=== PATIENT | male | born 1970 | race Caucasian/White ===

== ENCOUNTER → 2017-01-04 21:44 | Emergency (ER) | payer SELFPAY ==
[~2017-01-04 21:44] MED LIST: Acetaminophen TAB* 325 MG PO PRN; Al Hydrox/Mg Hydrox/Simet LIQ* 30 ML UDC PO PRN; Aspirin TAB* 325 MG PO ONE; Diazepam TAB(*) 5 MG PO ONE; Folic Acid TAB* 1 MG DAILY PO SCH; LORazepam IM* PER WAM PARAMETERS IM SCH; LORazepam TAB(*) WAM SCALE 0-6 MG PO SCH; Thiamine TAB* 100 MG TAB DAILY (@ T+1) PO SCH; Vitamin THERAPEUTIC TAB PO SCH
[2017-01-04 22:27] LABS: Hematocrit 47 % (42-52); Hemoglobin 16.3 g/dl (14.0-18.0); Mean Corpuscular HGB Conc 34 g/dl (31-36); Mean Corpuscular Hemoglobin 30 pg (27-31); Mean Corpuscular Volume 88 fL (80-94); Mean Platelet Volume 7 um3 (7.4-10.4); Red Blood Count 5.37 10^6/ul (4.0-5.4); Red Cell Distribution Width 13 % (10.5-15); White Blood Count 7.5 10^3/ul (3.5-10.8)
[2017-01-04 22:41] LABS: ALT 42 U/L (7-52); AST 40 U/L (13-39); Albumin 4.1 g/dL (3.2-5.2); Alkaline Phosphatase 96 U/L (34-104); Anion Gap 8 mmol/L (2-11); Blood Urea Nitrogen 8 mg/dL (6-24); CO2 Carbon Dioxide 28 mmol/L (22-32); Calcium 9.4 mg/dL (8.6-10.3); Chloride 101 mmol/L (101-111); EGFR African American 133.8 (>60); EGFR Non-African American 104.1 (>60); Globulin 3.4 g/dL (2-4); Glucose 105 mg/dL (70-100); Potassium 3.5 mmol/L (3.5-5.0); Sodium 137 mmol/L (133-145); Total Protein 7.5 g/dL (6.4-8.9)
[2017-01-04 22:56] LABS: Acetaminophen < 15 mcg/mL; Alcohol 292 mg/dL (<10); Salicylate < 2.50 mg/dL (<30)
[2017-01-04 23:06] LABS: TSH (Thyroid Stimulating Horm) 2.19 mcIU/mL (0.34-5.60)
[2017-01-05 00:05] LABS: Urine Bilirubin Negative (Negative); Urine Glucose Negative (Negative); Urine Nitrite Negative (Negative)
[2017-01-05 00:11] LABS: Benzodiazepine Urine Screen None Detected (None Detect)
--- NOTE | 2017-01-05 04:07 | ED ---
Psychiatric Complaint - HPI Summary HPI Summary: Patient presents for evaluation of depressive thoughts due to recent of mother. Drinking alcohol heavily recently to deal with stress. Poor support system. Denies homicidal ideations or other coingestants. No allev factors attempted. - History Of Current Complaint Chief Complaint: EDMentalHealth Time Seen by Provider: 01/04/17 21:56 Hx Obtained From: Patient Character: Depressed Aggravating Factor(s): Recent Stress, Alcohol Use Alleviating Factor(s): Nothing Related History: Positive For: Prior Psychiatric Issues - Allergies/Home Medications Allergies/Adverse Reactions: Allergies Allergy/AdvReac Type Severity Reaction Status Date / Time No Known Allergies Allergy Verified 04/06/16 15:16 Home Medications: Home Medications NK [No Home Medications Reported] 01/05/17 [History Confirmed 01/05/17] PMH/Surg Hx/FS Hx/Imm Hx Endocrine/Hematology History: Denies: Hx Diabetes Cardiovascular History: Denies: Hx Hypertension, Hx Pacemaker/ICD History: Denies: Hx Renal Disease Sensory History: Denies: Hx Hearing Aid Psychiatric History: Denies: Hx Panic Disorder - Surgical History Surgery Procedure, Year, and Place: 2 - Rt SHOULDER - RCT & TIP OF CLAVICLE FOR SPACING. HERNIA - UMBILICUS. TENDON RELEASE- Rt ELBOW Infectious Disease History: No Infectious Disease History: Denies: Traveled Outside the [place] in Last 30 Days - Social History Alcohol Use: Daily Substance Use Type: Reports: None Smoking Status (MU): Never Smoked Tobacco Review of Systems Positive: Anxious, Depressed All Other Systems Reviewed And Are Negative: Yes Physical Exam Triage Information Reviewed: Yes Vital Signs On Initial Exam: Initial Vitals Temp Pulse Resp BP Pulse Ox 99.6 F 82 18 157/85 96 01/04/17 21:54 01/04/17 21:54 01/04/17 21:54 01/04/17 21:54 01/04/17 21:54 Vital Signs Reviewed: Yes Appearance: Positive: Well-Appearing, No Pain Distress, Well-Nourished Skin: Positive: Warm, Skin Color Reflects Adequate Perfusion, Dry Head/Face: Positive: Normal Head/Face Inspection Eyes: Positive: Normal, EOMI, JUAN ALBERTO ENT: Positive: Normal ENT inspection, Hearing grossly normal, Pharynx normal Neck: Positive: Supple, Nontender Respiratory/Lung Sounds: Positive: Clear to Auscultation, Breath Sounds Present Cardiovascular: Positive: Normal, RRR, Pulses are Symmetrical in both Upper and Lower Extremities Abdomen Description: Positive: Nontender, No Organomegaly, Soft Musculoskeletal: Positive: Normal, Strength/ROM Intact Neurological: Positive: Normal, Sensory/Motor Intact, Alert, Oriented to Person Place, Time, CN Intact II-III, Normal Gait Psychiatric: Positive: Anxious, Depressed - Telly Coma Scale Coma Scale Total: 15 Diagnostics - Vital Signs Vital Signs Temp Pulse Resp BP Pulse Ox 01/04/17 21:54 99.6 F 82 18 157/85 96 - Laboratory Lab Results: Lab Results 01/04/17 01/04/17 01/04/17 Range/Units 22:17 22:17 23:44 WBC 7.5 (3.5-10.8) 10^3/ul RBC 5.37 (4.0-5.4) 10^6/ul Hgb 16.3 (14.0-18.0) g/dl Hct 47 (42-52) % MCV 88 (80-94) fL MCH 30 (27-31) pg MCHC 34 (31-36) g/dl RDW 13 (10.5-15) % Plt Count 307 (150-450) 10^3/ul MPV 7 L (7.4-10.4) um3 Neut % (Auto) 53.7 (38-83) % Lymph % (Auto) 32.9 (25-47) % Bee % (Auto) 9.4 H (1-9) % Eos % (Auto) 2.7 (0-6) % Baso % (Auto) 1.3 (0-2) % Absolute Neuts (auto) 4.1 (1.5-7.7) 10^3/ul Absolute Lymphs (auto) 2.5 (1.0-4.8) 10^3/ul Absolute Monos (auto) 0.7 (0-0.8) 10^3/ul Absolute Eos (auto) 0.2 (0-0.6) 10^3/ul Absolute Basos (auto) 0.1 (0-0.2) 10^3/ul Absolute Nucleated RBC 0.01 10^3/ul Nucleated RBC % 0.1 Sodium 137 (133-145) mmol/L Potassium 3.5 (3.5-5.0) mmol/L Chloride 101 (101-111) mmol/L Carbon Dioxide 28 (22-32) mmol/L Anion Gap 8 (2-11) mmol/L BUN 8 (6-24) mg/dL Creatinine 0.80 (0.67-1.17) mg/dL Est GFR ( Amer) 133.8 (>60) Est GFR (Non-Af Amer) 104.1 (>60) BUN/Creatinine Ratio 10.0 (8-20) Glucose 105 H (70-100) mg/dL Calcium 9.4 (8.6-10.3) mg/dL Total Bilirubin 0.40 (0.2-1.0) mg/dL AST 40 H (13-39) U/L ALT 42 (7-52) U/L Alkaline Phosphatase 96 (34-104) U/L Total Protein 7.5 (6.4-8.9) g/dL Albumin 4.1 (3.2-5.2) g/dL Globulin 3.4 (2-4) g/dL Albumin/Globulin Ratio 1.2 (1-3) TSH 2.19 (0.34-5.60) mcIU/mL Urine Color Colorless Urine Appearance Clear Urine pH 6.0 (5-9) Ur Specific Lampe 1.003 L (1.010-1.030) Urine Protein Negative (Negative) Urine Ketones Negative (Negative) Urine Blood Negative (Negative) Urine Nitrate Negative (Negative) Urine Bilirubin Negative (Negative) Urine Urobilinogen Negative (Negative) Ur Leukocyte Esterase Negative (Negative) Urine Glucose Negative (Negative) Salicylates < 2.50 (<30) mg/dL Urine Opiates Screen (None Detect) Acetaminophen < 15 mcg/mL Ur Barbiturates Screen (None Detect) Ur Phencyclidine Scrn (None Detect) Ur Amphetamines Screen (None Detect) U Benzodiazepines Scrn (None Detect) Urine Cocaine Screen (None Detect) U Cannabinoids Screen (None Detect) Serum Alcohol 292 H (<10) mg/dL 01/04/17 Range/Units 23:44 WBC (3.5-10.8) 10^3/ul RBC (4.0-5.4) 10^6/ul Hgb (14.0-18.0) g/dl Hct (42-52) % MCV (80-94) fL MCH (27-31) pg MCHC (31-36) g/dl RDW (10.5-15) % Plt Count (150-450) 10^3/ul MPV (7.4-10.4) um3 Neut % (Auto) (38-83) % Lymph % (Auto) (25-47) % Bee % (Auto) (1-9) % Eos % (Auto) (0-6) % Baso % (Auto) (0-2) % Absolute Neuts (auto) (1.5-7.7) 10^3/ul Absolute Lymphs (auto) (1.0-4.8) 10^3/ul Absolute Monos (auto) (0-0.8) 10^3/ul Absolute Eos (auto) (0-0.6) 10^3/ul Absolute Basos (auto) (0-0.2) 10^3/ul Absolute Nucleated RBC 10^3/ul Nucleated RBC % Sodium (133-145) mmol/L Potassium (3.5-5.0) mmol/L Chloride (101-111) mmol/L Carbon Dioxide (22-32) mmol/L Anion Gap (2-11) mmol/L BUN (6-24) mg/dL Creatinine (0.67-1.17) mg/dL Est GFR ( Amer) (>60) Est GFR (Non-Af Amer) (>60) BUN/Creatinine Ratio (8-20) Glucose (70-100) mg/dL Calcium (8.6-10.3) mg/dL Total Bilirubin (0.2-1.0) mg/dL AST (13-39) U/L ALT (7-52) U/L Alkaline Phosphatase (34-104) U/L Total Protein (6.4-8.9) g/dL Albumin (3.2-5.2) g/dL Globulin (2-4) g/dL Albumin/Globulin Ratio (1-3) TSH (0.34-5.60) mcIU/mL Urine Color Urine Appearance Urine pH (5-9) Ur Specific Lampe (1.010-1.030) Urine Protein (Negative) Urine Ketones (Negative) Urine Blood (Negative) Urine Nitrate (Negative) Urine Bilirubin (Negative) Urine Urobilinogen (Negative) Ur Leukocyte Esterase (Negative) Urine Glucose (Negative) Salicylates (<30) mg/dL Urine Opiates Screen None detected (None Detect) Acetaminophen mcg/mL Ur Barbiturates Screen None detected (None Detect) Ur Phencyclidine Scrn None detected (None Detect) Ur Amphetamines Screen None detected (None Detect) U Benzodiazepines Scrn None detected (None Detect) Urine Cocaine Screen None detected (None Detect) U Cannabinoids Screen None detected (None Detect) Serum Alcohol (<10) mg/dL Result Diagrams: 01/04/17 22:17 01/04/17 22:17 Lab Statement: Any lab studies that have been ordered have been reviewed, and results considered in the medical decision making process. Course/Dx - Differential Dx/Clinical Impression Differential Diagnosis/HQI/PQRI: Positive: Alcohol Intoxication, Anxiety, Depression, Suicidal Ideation Provider Diagnosis: Depression, Substance abuse Discharge - Discharge Plan Condition: Stable Disposition: ADMITTED TO [facility]
[2017-01-05] MEDS: Nitroglycerin TAB 0.4 MG* 0.4 MG TAB SL PRN ×2 (10:28→10:45)
[2017-01-05 11:22] VITALS: BP 146/82
--- NOTE | 2017-01-05 14:55 | RAD ---
HISTORY: Chest pain COMPARISONS: None VIEWS: 2: Frontal dual-energy and lateral views of the chest. FINDINGS: CARDIOMEDIASTINAL SILHOUETTE: The cardiomediastinal silhouette is normal. DIMA: The dima are normal. PLEURA: The costophrenic angles are sharp. No pleural abnormalities are noted. LUNG PARENCHYMA: The lungs are clear. ABDOMEN: The upper abdomen is clear. There is no subphrenic gas. BONES AND SOFT TISSUES: No bone or soft tissue abnormalities are noted. OTHER: None. IMPRESSION: NO ACTIVE CARDIOPULMONARY DISEASE.
--- NOTE | 2017-01-05 17:46 | PN ---
Hospitalist Progress Note HOSPITALIST ADDENDUM Case reviewed and d/w Damon TONEY. Mr. Johnson is a 46yo M with PMH of alcohol abuse who presented to ED with SI. Hospitalist service called because patient c/o chest pain. His CP appears to be non cardiac in nature and ACS has been ruled out. He would benefit of stress test as outpatient, but he has social barriers that may preclude it. Patient will be admitted to [facility] and could have his stress test next week while still in the hospital. Agree with current management as outlined on today's consultation.
--- NOTE | 2017-01-05 19:48 | CONS ---
MEDICAL CONSULTATION NOTE: DATE OF CONSULT: 01/05/17 - EMERGENCY DEPT PRIMARY CARE PHYSICIAN: None. REQUESTING PROVIDER: Dr. Juarez. CONSULTING PROVIDER: FENG Hickman. SUPERVISING PHYSICIAN: Jesusita Villalat MD. CHIEF COMPLAINT: Suicidal ideation and chest pain. HISTORY OF PRESENT ILLNESS: This is a 46-year-old gentleman with a history of alcoholism and depression who presented to the emergency department with suicidal ideation. He was acutely intoxicated with a blood alcohol level of 292 when he initially reached the emergency department. Mental health evaluation was initially completed. Several hours after he arrived in the emergency department, he was no longer under the influence of alcohol, he began to complain of chest pain. The patient was also noted to be tachycardic and diaphoretic at that time and was treated with benzos and also given a dose of nitroglycerin. The patient states at this time he is still having some mild chest pain but it is slightly improved. He states that his chest pain has actually been constant for the last 2 weeks or so. He recalls straining his left chest area when he was lifting a water heater several weeks ago. He denies any difficulty breathing. His chest pain is nonpleuritic. He does not have any personal history of coronary disease but is not under the care of a primary care provider and has a long history of alcoholism. The patient states that his pain is worse when lifting objects. He denies any pain associated with range of motion of the shoulder, however. He denies associated cough. The patient has a long history of alcoholism, generally he drinks 12 or more beers daily on top of shots of hard alcohol. He has never been sober for any length of time. He has been suffering from increased depression over the last 6 months since the of his mother with whom he was living and continues to reside in her house. PAST MEDICAL HISTORY: 1. Alcoholism. 2. Depression. PAST SURGICAL HISTORY: 1. Right shoulder surgery x3. 2. Umbilical hernia repair. 3. Right elbow tendon release. 4. Carpal tunnel release. HOME MEDICATIONS: None. FAMILY HISTORY: No family history of heart disease. SOCIAL HISTORY: The patient denies any history of smoking and significant alcohol abuse. Admits to 12 or more beers daily plus additional shots of hard alcohol. REVIEW OF SYSTEMS: As noted above in HPI. PHYSICAL EXAM: Most recent vitals: Temperature 99.6 degrees Fahrenheit, pulse 93 beats per minute, respiratory rate 15 per minute, oxygen saturation 94% on room air, and blood pressure 146/82 mmHg. General: This is a pleasant middle- aged gentleman who appears slightly anxious but is in no acute distress and accompanied by his sister. HEENT: Head is normocephalic and atraumatic. Mucous membranes are pink and moist. Neck: Neck is supple and free of lymphadenopathy. Chest: The patient has no obvious chest wall deformity but does have significant tenderness to palpation over the left anterior chest wall , which reproduces his symptoms. Respiratory: Lungs are clear to auscultation without wheezes, crackles, or rhonchi. Cardiovascular: Heart has regular rate and rhythm without murmurs, rubs, or gallops. Abdomen: Abdomen is soft and nontender to palpation. Extremities: No lower extremity edema. Neurologic: The patient is slightly tremulous. No focal neurologic deficits. Psych: The patient is alert and appropriately oriented and appears mildly anxious. DIAGNOSTIC STUDIES/LAB DATA: CBC shows a white blood cell count of 7500, hemoglobin of 16.3 g/dL and platelet count of 307,000. Comprehensive metabolic panel is essentially unremarkable with the sodium of 137 mmol/L, potassium 3.5 mmol/L. BUN of 8 and creatinine of 0.80. Random glucose of 105 mg/dL. Total bilirubin are transaminases within normal limits. Troponin is negative x2. TSH 2.2. Urinalysis is negative. Toxicology is negative with the exception of serum alcohol level of 292 at the time that he presented to the emergency department. EKG shows a normal sinus rhythm. Chest x-ray shows no acute disease. ASSESSMENT AND PLAN: This is a 46-year-old gentleman with a history of alcoholism and depression with complaints of chest pain. Hospitalist group was asked to please evaluate for possible medical admission. 1. Chest pain - the patient's symptoms appear to be noncardiac in origin. His pain as been constant for 2 weeks without EKG changes and he has negative troponins 5 hours apart. He has reproducible chest pain to palpation. He certainly does have risk factors; however, and he has no primary care provider and is unlikely to follow up as an outpatient. Obtaining a stress test on Sunday would be appropriate. This will be ordered and results will be followed up by medical provider but there is no indication for medical admission at this time. The patient has no evidence of acute coronary syndrome and does not require any specific intervention. 2. Alcoholism with acute withdrawal. The patient is exhibiting signs of mild withdrawal. He received appropriate doses of benzos in the emergency department and would recommend continuing tapering doses of benzos as needed. 3. Depression with suicidal ideation - impending psychiatric evaluation. 4. Code status. The patient is a full code. 5. Healthcare proxy is the patient's sister, Conchita Carmona. DISPOSITION: The patient's chest pain appears to be noncardiac in origin. Discussed with psychiatrist, Dr. Nava, the recommendations. The patient does not require hospital medical admission for his complaints of chest pain at this time. Would recommend stress testing on Sunday and hospitalist group will follow up on these results. No further cardiac monitoring necessary or intervention. The patient will be admitted to the behavioral services unit. FENG HICKMAN [id number]/CPS #: [id number] AGUSTIN
--- NOTE | 2017-01-05 21:35 | ED ---
I, Mejia Maradiaga, scribed for Flash Bah MD on 01/05/17 at 1848 . Progress - Progress Note Progress Note: The patient is a sign out from Dr. Knox. Re-evaluated the patient at 1800 The patient's sister was bedside and does not want the patient to be admitted to the hospital for another night. Psychiatrist last night while patient was intoxicated, wanted the patient kept. The patient lives alone, but will be staying with his sister so she can keep close supervision of him. The pt was SI last night while intoxicated but now denies. The patient and sister are looking to find a counselor for continuous care. The psychiatrist reviewed the case, he agrees the pt is safe to go home and again the pt has no hx of SI that I am aware of. He has very close supervision by his sister all weekend and then some if needed as she states her schedule is flexible. The sisters seems to be very reliable that she will monitor him. - Consult/PCP Time Called: 04:00 Course/Dx - Diagnoses Provider Diagnoses: Depression, Substance abuse, UNSPECIFIED DEPRESSIVE DISORDER, Chest pain, unspecified The documentation as recorded by the gaurangibAshwini duenas Michael accurately reflects the service I personally performed and the decisions made by me, Flash Bah MD.
--- NOTE | 2017-02-22 10:43 | ED ---
Trung Andrews Matthew, scribed for Waldemar Juarez MD on 01/05/17 at 0919 . Progress - Progress Note Progress Note: The patient is a sign out from Dr. Knox. Re-evaluated the patient at 10:11. The patient states that he's had chest pain for the past week. Currently, he's having substernal chest pain that radiates into the jaw and is rated 3/10 in severity. Per the patient's sister, the patient has not been seen by a physician in some time. Discussed the case with Dr. Patterson (Hospitalist) at 13:20 -- Notified of patient 's history and request the patient be admitted by the attending psychiatrist. The patient is awaiting admission by the attending psychiatrist. The patient is in stable condition and will be admitted to [facility]. - Consult/PCP Time Called: 04:00 Course/Dx - Diagnoses Provider Diagnoses: Depression, Substance abuse, UNSPECIFIED DEPRESSIVE DISORDER, Chest pain, unspecified The documentation as recorded by the Trung christiansen Matthew accurately reflects the service I personally performed and the decisions made by , Waldemar Juarez MD.
== END | disposition home or self-care (01) ==
LOC: ED 21:44 → UNDOADMIN 01-05 05:47 → BSU 01-05 05:47 → UNDOADMOB 01-05 13:26 → MEDTELE 01-05 13:26 → BSU 01-05 15:30 → UNDOADMIN 01-05 15:30
DX: F32.9 Major depressive disorder, single episode, unspecified (principal); F19.10 Other psychoactive substance abuse, uncomplicated; F41.8 Other specified anxiety disorders; R07.9 Chest pain, unspecified; R45.851 Suicidal ideations
CPT/HCPCS: 36415; 71020; 80053; 80307; 80320; 80329; 81003; 84443; 84484; 85025; 93005; 99285; A9270-GY; G0480

== ENCOUNTER 2017-12-14 08:30 | Emergency (ER) | payer SELFPAY ==
[2017-12-14] MEDS ORDERED: HYDROmorphone INJ* 2 MG/ML CARPUJECT SYRINGE IV SLOW PU ONE (08:42)
[2017-12-14] MEDS ORDERED: Lidocaine 1% INJ* 10 MG/ML 30 ML SDV INJ ONE (08:43)
[2017-12-14] MEDS ORDERED: Ondansetron INJ* 2 MG/ML VIAL IV ONE (08:47)
[2017-12-14] MEDS ORDERED: Ondansetron INJ* 2 MG/ML VIAL ONE (08:49)
--- NOTE | 2017-12-14 09:17 | RAD ---
HISTORY: Laceration, partial amputation of distal fourth digit COMPARISONS: None VIEWS: 2, Frontal and lateral views of the left hand FINDINGS: BONE DENSITY: Normal. BONES: There is a displaced fracture of the tuft of the distal phalanx of the fourth digit. JOINTS: There is no arthropathy. ALIGNMENT: There is no dislocation. SOFT TISSUES: There is soft tissue irregularity consistent with laceration. OTHER FINDINGS: None. IMPRESSION: DISTAL FOURTH DIGIT LACERATION WITH A DISPLACED FRACTURE OF THE TUFT OF THE DISTAL PHALANX OF THE FOURTH DIGIT
[2017-12-14] MEDS ORDERED: LORazepam TAB(*) 1 MG PO ONE (10:34)
[2017-12-14] MEDS ORDERED: HYDROcodone/ACETAMIN 5-325 MG* 1 TAB PO ONE (10:34)
[2017-12-14] MEDS ORDERED: ceFAZolin 1 GM VIAL(*) 1 GM in NS 0.9% 50 ML* 50 ML IVPB ONE (10:34)
[2017-12-14] MEDS ORDERED: ceFAZolin 1 GM in Dextrose (*) 1 GM/50 ML BAG IVPB ONE (10:45)
[2017-12-14 11:21] VITALS: BP 150/93
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
== END 2017-12-14 11:10 | disposition home or self-care (01) ==
LOC: ED 08:30
DX: S62.605A Fracture of unspecified phalanx of left ring finger, initial encounter for closed fracture (principal); W24.0XXA Contact with lifting devices, not elsewhere classified, initial encounter; Y92.9 Unspecified place or not applicable
CPT/HCPCS: 96374; 96375; 99284; A9270-GY; J0690; J1170; J2405

== ENCOUNTER 2017-12-17 14:39 | Day surgery (SDC) | payer OTHER ==
[~2017-12-17 14:39] MED LIST changes: -Acetaminophen TAB* 325 MG PO PRN; -Al Hydrox/Mg Hydrox/Simet LIQ* 30 ML UDC PO PRN; -Aspirin TAB* 325 MG PO ONE; +Buffered Lidocaine 0.9% SYRIN* 5 ML/SYR SYRINGE INTRADERM ONE; -Diazepam TAB(*) 5 MG PO ONE; -Folic Acid TAB* 1 MG DAILY PO SCH; -LORazepam IM* PER WAM PARAMETERS IM SCH; -LORazepam TAB(*) WAM SCALE 0-6 MG PO SCH; -Thiamine TAB* 100 MG TAB DAILY (@ T+1) PO SCH; -Vitamin THERAPEUTIC TAB PO SCH
[2017-12-17] MEDS ORDERED: ceFAZolin 2 GM PREMIX (*) 2 GM/50 ML BAG IVPB ONE (15:00)
[2017-12-17] MEDS ORDERED: Propofol* 10 MG/ML 20 ML BTL IV PUSH ONE ×2 (15:53→16:33)
[2017-12-17] MEDS ORDERED: fentaNYL* 50 MCG/ML 2 ML VIAL (100 MCG VIAL) ONE ×3 (15:53→17:44)
[2017-12-17] MEDS ORDERED: Ondansetron INJ* 2 MG/ML VIAL ONE (15:53)
[2017-12-17] MEDS ORDERED: Midazolam* 1 MG/ML 2 ML VIAL (2 MG) ONE (15:53)
[2017-12-17] MEDS ORDERED: Ketorolac INJ* 30 MG/ML 1 ML VIAL ONE (15:53)
[2017-12-17] MEDS ORDERED: Dexamethasone IV* 4 MG/ML 1 ML (4 MG) ONE (15:53)
[2017-12-17] MEDS ORDERED: Bupivacaine 0.25% SDV* 30 ML ONE (16:14)
[2017-12-17] MEDS ORDERED: Succinylcholine* 20 MG/ML 10 ML VIAL ONE (16:33)
[2017-12-17] MEDS ORDERED: oxyCODONE/Acetamin 5/325 MG* TAB PO PRN (17:06)
[2017-12-17] MEDS ORDERED: HYDROcodone/ACETAMIN 5-325 MG* 1 TAB PO PRN (17:06)
[2017-12-17] MEDS ORDERED: Naloxone* 0.4 MG/ML 1 ML VIAL IV PRN (17:06)
[2017-12-17] MEDS ORDERED: Ondansetron INJ* 2 MG/ML VIAL IV PRN (17:06)
[2017-12-17] MEDS ORDERED: HYDROcodone/ACETAMIN 5-325 MG* 1 TAB ONE (17:44)
[2017-12-17] MEDS: fentaNYL* 50 MCG/ML 2 ML VIAL (100 MCG VIAL) IV PRN ×4 (17:46→18:26)
[2017-12-17] MEDS ORDERED: diPHENhydraMINE IV* 50 MG/ML 1 ml VIAL (BENADRYL) ONE (17:48)
[2017-12-17 18:55] VITALS: BP 143/99
--- NOTE | 2017-12-18 19:08 | OP ---
DATE OF OPERATION: 12/17/17 - [facility] DATE OF : 70 SURGEON: Mejia Reyes MD ASSISTANTS: 1. FENG Rai 2. FENG Loza ANESTHESIOLOGIST: Dr. Waggoner. ANESTHESIA: General. PRE-OP DIAGNOSIS: Left ring finger partial amputation. POST-OP DIAGNOSIS: Left ring finger partial amputation. OPERATIVE PROCEDURE: Revision amputation, left ring finger through the distal interphalangeal joint with digital neurectomies and nail matrix excision. INDICATIONS: Heath had his finger pinched between a forklift and an object. He had quite a bit of soft tissue loss on the ulnar aspect of the ring finger. I had talked to him about shortening the finger somewhat to achieve closure with possible flap coverage or full thickness skin grafting. I told him I would not know the extent of soft tissue coverage needed until we have him sleep and the finger under tourniquet. We had talked about risks and benefits. He had wanted to proceed. ESTIMATED BLOOD LOSS: 2 mL. COMPLICATIONS: None. FINDINGS: See below. DESCRIPTION OF PROCEDURE: Heath was seen in the preoperative holding area. The correct side, site, and procedure were identified. We came back to the operating room. The arm was prepped and draped in the usual fashion with Betadine. A time- out was performed. I exsanguinated the arm with the Esmarch and the tourniquet was inflated to 250 mmHg. The first thing I did was, excise the entirety of the nail matrix including the germinal matrix. The soft tissue envelope was adequate in that I could by removing the remainder of the distal phalanx and disarticulating the joint at the distal interphalangeal joint, I could achieve soft tissue coverage by pulling down the radial flap, which appeared well perfused and which was to touch necrotic at the tip. I went ahead and circumferentially released the soft tissues about the distal interphalangeal joint and the joint was disarticulated. I trimmed back the collateral ligaments, the volar plate, the FDP tendon, the extensor tendon. I dissected out the ulnar digital nerve and this was trimmed and allowed to retract proximally into the finger. I dissected out just the tip of the radial digital nerve in the flap and trimmed the edges. I then went ahead and excised the necrotic margins off of the flap. I got everything cleaned. I soaked the finger in a Betadine bath for about 5 minutes and then irrigated it copiously with saline. The condyles were trimmed back with rongeur to a nice smooth concave surface and the articular cartilage was removed. Once I had everything nice and clean, I brought down my flap and sewed into place with some 4-0 nylon suture. During closure, I let the tourniquet down to make sure the flap was nicely perfused and it pinked up immediately. I then reinflated the tourniquet and put the remainder of the sutures in and dressed the wound with Xeroform, some 1-inch Daisy and a Coban dressing. Tourniquet was deflated. He was then woken up and taken to the recovery room in stable condition. [id number] #: [id number] AGUSTIN
== END 2017-12-17 19:34 | disposition home or self-care (01) ==
LOC: OR 14:39
PROVIDERS: ATTEND Orthopaedic Surgery Hand Surgery
DX: S67.195A Crushing injury of left ring finger, initial encounter (principal); W24.0XXA Contact with lifting devices, not elsewhere classified, initial encounter; Y92.69 Other specified industrial and construction area as the place of occurrence of the external cause; Y99.0 Civilian activity done for income or pay
CPT/HCPCS: 88302; 88311; J0330; J0690; J1100; J1200; J1885; J2250; J2405; J2704; J3010

== ENCOUNTER 2021-06-20 19:55 | Inpatient (IN) ==
[2021-06-20 22:00] LABS: ABS Basophils 0.1 10^3/ul (0-0.2); ABS Lymphocytes 0.9 10^3/ul (1.0-4.8); ABS Monocytes 1.2 10^3/ul (0-0.8); ABS Neutrophils 7.3 10^3/ul (1.5-7.7); Eosinophil % 0.2 %; Hematocrit 46 % (42-52); Hemoglobin 16.2 g/dL (14.0-18.0); Lymphocyte % 9.4 %; Mean Corpuscular HGB Conc 35 g/dL (31-36); Mean Corpuscular Hemoglobin 32 pg (27-31); Mean Corpuscular Volume 90 fL (80-94); Mean Platelet Volume 7.1 fL (7.4-10.4); Nucleated Red Blood Cells % 0.1; Platelet Count 316 10^3/uL (150-450); Red Blood Count 5.13 10^6 /uL (4.18-5.48); Red Cell Distribution Width 13 % (10-15); White Blood Count 9.5 10^3/uL (3.5-10.8)
[2021-06-20 22:03] LABS: INR 1.04 (0.86-1.15)
[2021-06-20 22:13] LABS: Albumin 4.5 g/dL (3.2-5.2); Albumin/Globulin Ratio 1.3 (1-3); Calcium 9.9 mg/dL (8.6-10.3); EGFR African American 139.3 (>60); EGFR Non-African American 115.1 (>60); Globulin 3.6 g/dL (2-4); Potassium 3.5 mmol/L (3.5-5.0); Total Bilirubin 1.8 mg/dL (0.2-1.0); Total Protein 8.1 g/dL (6.4-8.9)
[2021-06-21] MEDS ORDERED: Lactated Ringers 1000 ml BAG 2,000 ML IV ONE (03:52)
[2021-06-21] MEDS ORDERED: Diazepam INJ CARPUJECT 5 MG/ML IV ONE (03:53)
[2021-06-21] MEDS ORDERED: Thiamine 100 MG/ML 2 ml VIAL (200 mg) IM ONE (04:48)
[2021-06-21] MEDS ORDERED: LORazepam 2 mg VIAL 1 ml IV PUSH SCH ×2 (05:00→08:37)
[2021-06-21] MEDS ORDERED: Senna TAB 8.6 mg TAB PO PRN (06:44)
[2021-06-21] MEDS ORDERED: Polyethylene Glycol 3350 17 GM PACKET PO PRN (06:44)
[2021-06-21] MEDS: Heparin 5000 UNITS/ML 1 mL VIAL SUBCUT SCH ×3 (06:52→20:26)
[2021-06-21 07:37] LABS: ABS Basophils 0.1 10^3/ul (0-0.2); ABS Lymphocytes 0.9 10^3/ul (1.0-4.8); ABS Monocytes 0.9 10^3/ul (0-0.8); ABS Neutrophils 3.8 10^3/ul (1.5-7.7); Eosinophil % 0.5 %; Hematocrit 40 % (42-52); Hemoglobin 14.2 g/dL (14.0-18.0); Lymphocyte % 16.3 %; Mean Corpuscular HGB Conc 35 g/dL (31-36); Mean Corpuscular Hemoglobin 32 pg (27-31); Mean Corpuscular Volume 89 fL (80-94); Mean Platelet Volume 7.3 fL (7.4-10.4); Platelet Count 256 10^3/uL (150-450); Red Blood Count 4.49 10^6 /uL (4.18-5.48); Red Cell Distribution Width 13 % (10-15); White Blood Count 5.7 10^3/uL (3.5-10.8)
[2021-06-21 07:51] LABS: Albumin 3.7 g/dL (3.2-5.2); Albumin/Globulin Ratio 1.2 (1-3); EGFR African American 146.3 (>60); EGFR Non-African American 120.9 (>60); Globulin 3.2 g/dL (2-4); HDL Cholesterol 77.7 mg/dL; Magnesium 1.8 mg/dL (1.9-2.7); Potassium 3.3 mmol/L (3.5-5.0); Total Bilirubin 1.4 mg/dL (0.2-1.0); Total Protein 6.9 g/dL (6.4-8.9)
[2021-06-21 07:52] LABS: Troponin I 0.01 ng/mL (<0.03)
[2021-06-21] MEDS ORDERED: LORazepam 2 mg VIAL 1 ml IV PUSH ONE (08:10)
[2021-06-21] MEDS ORDERED: Lorazepam PYXIS KEY PRN ×2 (08:10→08:35)
[2021-06-21] MEDS ORDERED: LORazepam 2 mg VIAL 1 ml IV PUSH PRN (08:35)
[2021-06-21] MEDS ORDERED: Aminophylline 25 MG/ML VIAL ONE (08:56)
[2021-06-21] MEDS ORDERED: Regadenoson 0.4 MG/5 ML SYRINGE ONE (08:56)
[2021-06-21] MEDS ORDERED: Al Hydrox/Mg Hydrox/Simet LIQ 30 ML UDC PO ONE (11:43)
[2021-06-21] MEDS: Multivitamins/Minerals TAB PO SCH (13:38)
[2021-06-21] MEDS: KCL 10 MEQ/50 ML IVPREMIX 10 MEQ/50 ML BAG IV SCH ×4 (13:40→19:44)
[2021-06-22 05:00] LABS: ABS Basophils 0.1 10^3/ul (0-0.2); ABS Eosinophils 0.2 10^3/ul (0-0.6); ABS Lymphocytes 1.3 10^3/ul (1.0-4.8); ABS Monocytes 0.9 10^3/ul (0-0.8); ABS Neutrophils 3.9 10^3/ul (1.5-7.7); Eosinophil % 3.1 %; Hematocrit 42 % (42-52); Hemoglobin 14.7 g/dL (14.0-18.0); Lymphocyte % 20.8 %; Mean Corpuscular HGB Conc 35 g/dL (31-36); Mean Corpuscular Hemoglobin 32 pg (27-31); Mean Corpuscular Volume 91 fL (80-94); Mean Platelet Volume 7.6 fL (7.4-10.4); Nucleated Red Blood Cells % 0.1; Platelet Count 240 10^3/uL (150-450); Red Blood Count 4.61 10^6 /uL (4.18-5.48); Red Cell Distribution Width 13 % (10-15); White Blood Count 6.4 10^3/uL (3.5-10.8)
[2021-06-22 05:20] LABS: EGFR African American 146.3 (>60); EGFR Non-African American 120.9 (>60); Potassium 3.5 mmol/L (3.5-5.0)
[2021-06-22] MEDS: Heparin 5000 UNITS/ML 1 mL VIAL SUBCUT SCH ×3 (06:26→21:39)
[2021-06-22] MEDS ORDERED: Potassium Chlor 20 meq TAB.ER PO ONE (10:31)
[2021-06-22] MEDS: Multivitamins/Minerals TAB PO SCH (10:32)
[2021-06-23] MEDS: Heparin 5000 UNITS/ML 1 mL VIAL SUBCUT SCH ×3 (05:43→21:12)
[2021-06-23 05:55] LABS: ABS Basophils 0.1 10^3/ul (0-0.2); ABS Eosinophils 0.3 10^3/ul (0-0.6); ABS Lymphocytes 1.5 10^3/ul (1.0-4.8); ABS Monocytes 0.9 10^3/ul (0-0.8); ABS Neutrophils 3.9 10^3/ul (1.5-7.7); Eosinophil % 4.7 %; Hematocrit 43 % (42-52); Hemoglobin 15.1 g/dL (14.0-18.0); Lymphocyte % 21.9 %; Mean Corpuscular HGB Conc 35 g/dL (31-36); Mean Corpuscular Hemoglobin 32 pg (27-31); Mean Corpuscular Volume 90 fL (80-94); Mean Platelet Volume 7.6 fL (7.4-10.4); Nucleated Red Blood Cells % 0.1; Platelet Count 227 10^3/uL (150-450); Red Blood Count 4.79 10^6 /uL (4.18-5.48); Red Cell Distribution Width 13 % (10-15); White Blood Count 6.8 10^3/uL (3.5-10.8)
[2021-06-23 06:09] LABS: Calcium 9.2 mg/dL (8.6-10.3); EGFR Non-African American 104.9 (>60); Potassium 3.6 mmol/L (3.5-5.0)
[2021-06-23] MEDS: Multivitamins/Minerals TAB PO SCH (10:26)
[2021-06-24] MEDS: Heparin 5000 UNITS/ML 1 mL VIAL SUBCUT SCH ×3 (05:53→21:16)
[2021-06-24 06:47] LABS: ABS Basophils 0.1 10^3/ul (0-0.2); ABS Eosinophils 0.3 10^3/ul (0-0.6); ABS Lymphocytes 1.6 10^3/ul (1.0-4.8); ABS Monocytes 1.1 10^3/ul (0-0.8); ABS Neutrophils 4.6 10^3/ul (1.5-7.7); Eosinophil % 3.7 %; Hematocrit 42 % (42-52); Hemoglobin 15.1 g/dL (14.0-18.0); Lymphocyte % 20.8 %; Mean Corpuscular HGB Conc 36 g/dL (31-36); Mean Corpuscular Hemoglobin 32 pg (27-31); Mean Corpuscular Volume 89 fL (80-94); Mean Platelet Volume 7.5 fL (7.4-10.4); Platelet Count 234 10^3/uL (150-450); Red Blood Count 4.75 10^6 /uL (4.18-5.48); Red Cell Distribution Width 13 % (10-15); White Blood Count 7.6 10^3/uL (3.5-10.8)
[2021-06-24 07:16] LABS: Albumin 3.7 g/dL (3.2-5.2); Albumin/Globulin Ratio 1.1 (1-3); Calcium 9.2 mg/dL (8.6-10.3); EGFR African American 139.3 (>60); EGFR Non-African American 115.1 (>60); Globulin 3.3 g/dL (2-4); Potassium 3.5 mmol/L (3.5-5.0); Total Bilirubin 0.8 mg/dL (0.2-1.0)
[2021-06-24] MEDS: Multivitamins/Minerals TAB PO SCH (10:41)
[2021-06-24] MEDS: Potassium Chlor 20 meq TAB.ER PO SCH ×2 (16:23→21:16)
[2021-06-25 05:27] LABS: ABS Basophils 0.1 10^3/ul (0-0.2); ABS Eosinophils 0.3 10^3/ul (0-0.6); ABS Lymphocytes 1.9 10^3/ul (1.0-4.8); ABS Neutrophils 3.5 10^3/ul (1.5-7.7); Eosinophil % 3.8 %; Hematocrit 43 % (42-52); Hemoglobin 14.7 g/dL (14.0-18.0); Mean Corpuscular HGB Conc 35 g/dL (31-36); Mean Corpuscular Hemoglobin 31 pg (27-31); Mean Corpuscular Volume 91 fL (80-94); Mean Platelet Volume 7.9 fL (7.4-10.4); Nucleated Red Blood Cells % 0.1; Platelet Count 246 10^3/uL (150-450); Red Blood Count 4.69 10^6 /uL (4.18-5.48); Red Cell Distribution Width 13 % (10-15); White Blood Count 6.7 10^3/uL (3.5-10.8)
[2021-06-25 05:43] LABS: EGFR African American 139.3 (>60); EGFR Non-African American 115.1 (>60); Potassium 3.8 mmol/L (3.5-5.0)
[2021-06-25] MEDS: Heparin 5000 UNITS/ML 1 mL VIAL SUBCUT SCH (06:24)
[2021-06-25] MEDS: Potassium Chlor 20 meq TAB.ER PO SCH (10:12)
[2021-06-25] MEDS: Multivitamins/Minerals TAB PO SCH (10:12)
[2021-06-25 10:50] VITALS: BP 118/83
== END 2021-06-25 11:00 | disposition home or self-care (01) | DRG 896 ==
LOC: ED 19:55 → MEDTELE 06-21 08:36 → MED 06-22 09:09
PROVIDERS: ADMIT Hospitalist; ATTEND Internal Medicine